=== PATIENT | male | born 1950 | race Caucasian/White ===

== ENCOUNTER 2018-05-19 07:28 | Day surgery (SDC) | payer MEDICARE ==
--- NOTE | 2018-05-10 21:10 | HP ---
Amended report to correct patient name and account number on report. CC: Dr. Soler; Dr. Benjamin; Dr. Powell* ADMITTING HISTORY AND PHYSICAL: DATE OF ADMISSION: 05/19/18 SURGEON: Dr. Powell. ADMITTING DIAGNOSIS: Left hydronephrosis. PLANNED PROCEDURE: Left retrograde, left ureteroscopy and left stent insertion. HISTORY OF PRESENT ILLNESS: Jasiel Waldrop is a 68-year-old gentleman who had been evaluated and noted to have left hydronephrosis. Initially, he was noted to have hydronephrosis with no obvious explanation as to the etiology of obstruction and diuretic nuclear scan had shown fairly symmetrical bilateral renal function and I had recommended that we not intervene at the present time since my thinking was this was a chronically dilated but not obstructed system; however, he then had a recent ultrasound done in March, which showed moderate to marked left hydronephrosis and absent left ureteral jet. It is possible that this may represent a congenital left ureteropelvic junction obstruction, although the most recent ultrasound done at the hospital commented on a dilated left ureter. He is now being brought in further evaluation to try to delineate the level and etiology of the obstruction to see whether this is a chronic ureterovesical junction obstruction or whether this is a chronic ureteropelvic junction obstruction. PAST MEDICAL HISTORY: Significant for hypertension. PAST SURGICAL HISTORY: Significant for tonsillectomy. MEDICATIONS: On admission: 1. Lisinopril 10 mg a day. 2. Aspirin 81 mg a day. ALLERGIES: POISON ALEJANDRO. SOCIAL HISTORY: Smoking history, he is a nonsmoker. REVIEW OF SYSTEMS: He is otherwise in excellent health. There is no history of diabetes mellitus or any other major systemic illness. PHYSICAL EXAMINATION GENERAL: Reveals a pleasant healthy-appearing, middle-aged gentleman. VITAL SIGNS: Blood pressure is 146/90, pulse 73 per minute, oxygen saturation 98% on room air. LUNGS: Clear bilaterally. CARDIOVASCULAR EXAM: Regular rate and rhythm. S1, S2. ABDOMEN: Soft with mild left flank tenderness. IMPRESSION: A 68-year-old gentleman with left hydronephrosis of unclear etiology and somewhat conflicting reports on imaging showing ureteral dilatation on the most recent ultrasound. PLAN: Plan is for cystoscopy, left retrograde, left ureteroscopy and left stent insertion. [id number]/[facility] #: [id number] [facility]
[~2018-05-19 07:28] MED LIST: Buffered Lidocaine 0.9% SYRIN* 5 ML/SYR SYRINGE INTRADERM ONE; Midazolam* 1 MG/ML 2 ML VIAL (2 MG) ONE; fentaNYL* 50 MCG/ML 2 ML VIAL (100 MCG VIAL) ONE
[2018-05-19] MEDS ORDERED: cefTRIAXone(*) 2 GM ADDV.VIAL IVPB ONE (07:41)
[2018-05-19] MEDS ORDERED: Propofol* 500 MG/50 ML BTL ONE (08:07)
[2018-05-19] MEDS ORDERED: Propofol* 10 MG/ML 20 ML BTL IV PUSH ONE (08:08)
[2018-05-19] MEDS ORDERED: Lidocaine 2% PF * 5 ML VIAL ONE ×2 (08:08→08:09)
[2018-05-19] MEDS ORDERED: Chloroprocaine 2%* 20 ML VIAL ONE (08:10)
[2018-05-19] MEDS ORDERED: Iohexol 180 (CONTRAST) 10 ML SDV IV ONE ×3 (08:29→09:30)
[2018-05-19] MEDS ORDERED: EPINEPHrine SYR 0.1MG/ML* SYRINGE ONE (09:38)
[2018-05-19] MEDS ORDERED: Gentamicin ADULT (*) 40 MG/ML VIAL ONE (09:39)
[2018-05-19] MEDS ORDERED: oxyCODONE TAB* 5 MG TAB PO PRN (09:39)
[2018-05-19] MEDS ORDERED: Acetaminophen TAB* 325 MG PO PRN (09:39)
[2018-05-19] MEDS ORDERED: Naloxone* 0.4 MG/ML 1 ML VIAL IV PRN (09:39)
[2018-05-19] MEDS ORDERED: fentaNYL* 50 MCG/ML 2 ML VIAL (100 MCG VIAL) ONE ×2 (10:23→11:02)
[2018-05-19] MEDS: fentaNYL* 50 MCG/ML 2 ML VIAL (100 MCG VIAL) IV PRN ×3 (10:23→11:05)
[2018-05-19] MEDS ORDERED: Acetaminophen TAB* 325 MG ONE (10:23)
--- NOTE | 2018-05-19 10:46 | RAD ---
INDICATION: Left ureteral stent insertion. COMPARISON: Correlation is made with a prior renal and bladder ultrasound from May 05, 2018. TECHNIQUE: 20 seconds of intermittent fluoroscopic guidance were provided and 15 spot films of the abdomen were centered on the left side. FINDINGS: There is partial opacification of the left renal collecting system. There is marked dilatation of the left renal pelvis and calyces. Subsequently a balloon catheter is placed over the region of the ureteropelvic junction over a guidewire. Subsequently there is placement of a double-J stent catheter on the left side which demonstrates normal course. IMPRESSION: INTRAOPERATIVE CONTROL FILMS. CPT II Codes: G9501
[2018-05-19] MEDS ORDERED: Ondansetron INJ* 2 MG/ML VIAL ONE (11:02)
[2018-05-19] MEDS ORDERED: diPHENhydraMINE IV* 50 MG/ML 1 ml VIAL (BENADRYL) ONE (11:43)
[2018-05-19 13:42] VITALS: BP 143/85
--- NOTE | 2018-05-19 22:10 | OP ---
CC: Dr. Yu Soler * DATE OF OPERATION: 05/19/18 - [facility] DATE OF : 50 SURGEON: Jerman Powell MD ANESTHESIOLOGIST: Dr. Goodson. ANESTHESIA: Spinal. PRE-OP DIAGNOSIS: Left hydronephrosis. POST-OP DIAGNOSIS: Left hydronephrosis plus left ureteropelvic junction obstruction. OPERATIVE PROCEDURE: Cystoscopy, left retrograde pyelogram, left ureteroscopy, left ureteral balloon dilatation, and left stent insertion. COMPLICATIONS: None. STENTS USED: 3.5-[place] 28-cm silicon stent left ureter. POSTOPERATIVE CONDITION: Stable. OPERATIVE FINDINGS: 1. Normal-appearing urethra. 2. Mild to moderately enlarged prostate. 3. Normal-appearing bladder. 4. 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 INDICATIONS: Jasiel Waldrop is a 68-year-old gentleman who was evaluated and was noted to have severe left hydronephrosis. My initial impulse had been to leave this alone as his renal function is satisfactory and diuretic nuclear scan did not reveal any significant obstruction. However, recent ultrasound suggested absence of the left ureteral jet and there was also a question raised by the radiologist on the recent ultrasound of possible dilatation of the left ureter. He is now being brought in for further evaluation and management. DESCRIPTION OF PROCEDURE: After induction of spinal anesthesia, the patient was placed in dorsal lithotomy position. Sequential compression devices were in place and functioning. Initial cystoscopy revealed a normal-appearing urethra and mild to moderately enlarged prostate and a normal-appearing bladder. A guidewire was introduced into the left ureter. Retrograde pyelogram revealed severe left hydronephrosis with a significantly dilated renal pelvis and narrow ureteropelvic junction with slight tortuosity of the ureter but no evidence of a dilated ureter. 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 No persistent filling defects were noted. The guidewire was advanced into the proximal collecting system scraping out the ureter. The ureteropelvic junction was carefully dilated first with a 4-[place] open-ended catheter and next with an 8-[place] open-ended catheter. Next, the ureteroscope was introduced and advanced under direct vision. The entire distal mid and proximal ureter were visualized and appeared normal. The ureteroscope was advanced to the level of the ureteropelvic junction. There indeed the narrowing could be clearly identified. Next, balloon dilatation of the ureteropelvic junction was carried out successfully under fluoroscopic monitoring. Once this was done, an 8.5-[place] 28-cm silicone stent was introduced and positioned under fluoroscopy with good proximal and distal positioning obtained. The patient tolerated the procedure satisfactorily and was transferred back to the recovery area in stable condition. [id number]/[facility] #: [id number] MTDD
== END 2018-05-19 14:09 | disposition home or self-care (01) ==
LOC: OR 07:28
PROVIDERS: ATTEND Urology
DX: N13.0 Hydronephrosis with ureteropelvic junction obstruction (principal); N40.0 Benign prostatic hyperplasia without lower urinary tract symptoms; I10 Essential (primary) hypertension; Z87.891 Personal history of nicotine dependence; I73.00 Raynaud's syndrome without gangrene
CPT/HCPCS: 74420; A9270-GY; C1876; J0171; J0696; J1200; J1580; J2250; J2400; J2405; J2704; J3010

== ENCOUNTER → 2019-03-06 15:03 | Emergency (ER) | payer MEDICARE ==
[~2019-03-06 15:03] MED LIST changes: -Buffered Lidocaine 0.9% SYRIN* 5 ML/SYR SYRINGE INTRADERM ONE; +Docusate CAP* 100 MG PO ONE; +Lactated Ringers 1000 ML Bag* 1,000 ML IV SCH; -Midazolam* 1 MG/ML 2 ML VIAL (2 MG) ONE; +Tranexamic Acid 1,000 MG/10 ML 1,000 MG in NS 0.9% 50 ML* 50 ML TOPICAL ONE; +cefTRIAXone(*) 2 GM in NS 0.9% 100 ML* 100 ML IVPB ONE; -fentaNYL* 50 MCG/ML 2 ML VIAL (100 MCG VIAL) ONE
--- NOTE | 2019-03-06 15:44 | ED ---
GI/ HPI - HPI Summary HPI Summary: 68 year old M presenting to [facility] from Dr. Powell, urology, accompanied by sister Marilee with a chief complaint of small bleed in rectum that won't stop bleeding after his recent biopsy. The patient rates the pain 0/10 in severity. Symptoms aggravated by nothing. Symptoms alleviated by nothing. Patient reports fatigue Patient denies hematuria and dysuria. Patient had biopsy done morning for workup for prostate cancer after which he was discharged home. Since then, patient has had rectal bleeding he noticed blood in the toilet after he went to the bathroom. Patient went back to Dr. Powell's office today where they tried to stop the bleed and placed a tejada which helped slow the bleeding however. There was a concern for continued arterial bleeding so he was sent to the ER. - History of Current Complaint Chief Complaint: EDGIBleed Time Seen by Provider: 03/06/19 15:32 Stated Complaint: RECTAL BLEEDING PER PT Hx Obtained From: Patient Onset/Duration: Started Days Ago, Still Present Timing: Constant Current Severity: None Pain Intensity: 0 Associated Signs and Symptoms: Positive: Negative - hematuria, dysuria, Weakness Aggravating Factor(s): Nothing Alleviating Factor(s): Nothing - Allergy/Home Medications Allergies/Adverse Reactions: Allergies Allergy/AdvReac Type Severity Reaction Status Date / Time doxycycline Allergy Flushing Verified 03/06/19 15:04 Home Medications: Home Medications Cornish-3 Fatty Acids (Nf) [Fish Oil (NF)] 1,000 mg PO DAILY 03/06/19 [History Confirmed 03/06/19] PMH/Surg Hx/FS Hx/Imm Hx Endocrine/Hematology History: Reports: Hx Anemia - POSSIBLE BORDERLINE Denies: Hx Diabetes Cardiovascular History: Reports: Hx Hypertension - ON MEDS Comment Only: Hx Rheumatic Fever - DENIES GI History: Reports: Hx Irritable Bowel, Other GI Disorders - OCCASIONAL SPASTIC COLON History: Reports: Other Problems/Disorders - ENLARGE PROSTATE Denies: Hx Renal Disease Sensory History: Reports: Hx Contacts or Glasses - GLASSES Denies: Hx Hearing Aid Opthamlomology History: Reports: Hx Contacts or Glasses - GLASSES Psychiatric History: Reports: Hx Depression - OCCASIONAL - SITUATIONAL - Surgical History Surgery Procedure, Year, and Place: TONSILLECTOMY Hx Anesthesia Reactions: Yes - NAUSEA WITH GENERAL ANESTHESIA/ FELT LIKE "SPACE CADET" AFTER COLONOSCOPY Infectious Disease History: No Infectious Disease History: Reports: Hx Hepatitis - POSSIBLY AT AGE 12 Denies: Traveled Outside the [place] in Last 30 Days - Family History Known Family History: Positive: Other - father with CHF and A-fib - Social History Alcohol Use: Occasionally Alcohol Amount: SOCIALLY Hx Substance Use: No Substance Use Type: Reports: None Hx Tobacco Use: No Smoking Status (MU): Never Smoked Tobacco Review of Systems Positive: Other - small arterial bleed in rectum Negative: dysuria, hematuria Positive: Weakness All Other Systems Reviewed And Are Negative: Yes Physical Exam - Summary Physical Exam Summary: Constitutional: Well-developed, Well-nourished, Alert. (-) Distressed Skin: Warm, Dry HENT: Normocephalic; Atraumatic Eyes: Conjunctiva normal Neck: Musculoskeletal ROM normal neck. (-) JVD, (-) Stridor Cardio: Rhythm regular, rate normal, Heart sounds normal; Intact distal pulses; Radial pulses are 2+ and symmetric. (-) Murmur Pulmonary/Chest wall: Effort normal. (-) Respiratory distress, (-) Wheezes, (-) Rales Abd: Soft, (-) tenderness, (-) Distension, (-) Guarding, (-) Rebound Musculoskeletal: (-) Edema Lymph: (-) Cervical adenopathy Neuro: Alert, Oriented x3 Psych: Mood and affect Normal Per urology, rectal exam is without evidence of active bleeding Triage Information Reviewed: Yes Vital Signs On Initial Exam: Initial Vitals Temp Pulse Resp BP Pulse Ox 97.9 F 61 16 115/69 94 03/06/19 15:04 03/06/19 15:04 03/06/19 15:04 03/06/19 15:04 03/06/19 15:04 Vital Signs Reviewed: Yes Diagnostics - Vital Signs Vital Signs Temp Pulse Resp BP Pulse Ox 03/06/19 15:04 97.9 F 61 16 115/69 94 - Laboratory Result Diagrams: 03/06/19 15:58 Lab Statement: Any lab studies that have been ordered have been reviewed, and results considered in the medical decision making process. Re-Evaluation - Re-Evaluation First Eval Re-Evaluation Time: 18:26 Comment: Dr. Powell recommends giving 2 gm Rocephin and Colace 200 mg PO GIGU Course/Dx - Course Course Of Treatment: 68-year-old male with a recent prostate biopsy with resultant rectal bleeding presents with urology office. Vital signs stable, NAD Discussed case with urologist union representative who recommends checking H&H and will come see patient. Hb stable. Patient got ceftriaxone and colace as per urologist, no further bleeding. plan for discharge to home - Diagnoses Provider Diagnoses: Rectal bleed - Physician Notifications Discussed Care Of Patient With: Jerman Powell Time Discussed With Above Provider: 20:35 Instructed by Provider To: Other - Dr. Powell, urology, agrees with discharge Discharge - Sign-Out/Discharge Documenting (check all that apply): Patient Departure - Discharge Patient Received Moderate/Deep Sedation with Procedure: No - Discharge Plan Condition: Stable Disposition: HOME Patient Education Materials: Rectal Bleeding (ED) Referrals: Jerman Powell MD [Medical Doctor] - 2 Days Additional Instructions: Follow up with Dr. Pwoell in 2 days. Return to the Emergency Department for continued rectal bleeding. - Billing Disposition and Condition Condition: STABLE Disposition: Home - Attestation Statements Document Initiated by Scribe: Yes Documenting Scribe: Crystal Lr Provider For Whom Scribe is Documenting (Include Credential): Carmelita Ortega MD Scribe Attestation: I, Crystal Lr, scribed for Carmelita Ortega MD on 03/06/19 at 2227. Scribe Documentation Reviewed: Yes Provider Attestation: The documentation as recorded by the Crystal stacy accurately reflects the service I personally performed and the decisions made by me, Carmelita Ortega MD Status of Scribe Document: Viewed
[2019-03-06 16:11] LABS: ABS Eosinophils 0.1 10^3/ul (0-0.6); ABS Lymphocytes 0.8 10^3/ul (1.0-4.8); ABS Monocytes 0.7 10^3/ul (0-0.8); ABS Neutrophils 9.8 10^3/ul (1.5-7.7); Eosinophil % 0.5 %; Hematocrit 40 % (42-52); Hemoglobin 13.8 g/dL (14.0-18.0); Lymphocyte % 6.8 %; Mean Corpuscular HGB Conc 35 g/dL (31-36); Mean Corpuscular Hemoglobin 30 pg (27-31); Mean Corpuscular Volume 87 fL (80-94); Mean Platelet Volume 7.8 fL (7.4-10.4); Platelet Count 178 10^3/uL (150-450); Red Blood Count 4.58 10^6 /uL (4.18-5.48); Red Cell Distribution Width 14 % (10-15); White Blood Count 11.3 10^3/uL (3.5-10.8)
[2019-03-06 16:25] LABS: INR 1.06 (0.82-1.09)
[2019-03-06 21:01] VITALS: BP 123/86
== END | disposition home or self-care (01) ==
LOC: ED 15:03
DX: K62.5 Hemorrhage of anus and rectum (principal); I10 Essential (primary) hypertension; Z79.899 Other long term (current) drug therapy; Z88.1 Allergy status to other antibiotic agents
CPT/HCPCS: 36415; 85025; 85610; 96361; 96365; 96366; 99283; A9270-GY; J0696